=== PATIENT | male | born 1950 | race Caucasian/White ===

== ENCOUNTER 2019-02-25 08:58 | Emergency (ER) | payer OTHER ==
[~2019-02-25] VITALS: Ht 170.2 cm; Wt 92.5 kg
[2019-02-25 09:05] VITALS: BP 136/66
--- NOTE | 2019-02-25 09:11 | NUR ---
PT AMBULATED TO ER BED 10
--- NOTE | 2019-02-25 09:18 | NUR ---
ACCOMPANIED BY DAUGHTER--C/O LOWER BACK CONSTANT PAIN 04/01 X 3 DAYS PT WENT OVER TO [place] TO WASH UP MON MORNING AND FELL HURTING HIS BACK HE LEANED FOWARD TO WASH; THIS DESCRIBED BY PT. AMBULATORY WITH STEADY GAIT
[2019-02-25] MEDS ORDERED: MORPHINE SULFATE 4 MG/ML SYR IM ONE (10:00)
[2019-02-25] MEDS ORDERED: KETOROLAC 60 MG/2 ML VIAL IM ONE (10:00)
--- NOTE | 2019-02-25 10:00 | NUR ---
PT TO CT VIA WC
--- NOTE | 2019-02-25 10:20 | NUR ---
RETURNED FROM CT---MEDICATED WRITTEN WILL CONTINUE TO OBSERVE FOR PAIN CONTROL
[2019-02-25 12:46] VITALS: BP 134/67
--- NOTE | 2019-02-25 12:47 | NUR ---
Patient discharged with v/s stable. Written and verbal after care instructions given and explained. Patient alert, oriented and verbalized understanding of instructions. Ambulatory with steady gait. All questions addressed prior to discharge. ID band removed. Patient advised to follow up with PMD. Rx of voltaren XR given. Patient educated on indication of medication including possible reaction and side effects. Opportunity to ask questions provided and answered.
== END 2019-02-25 12:47 | disposition home or self-care (01) ==
LOC: MED 08:58
DX: M54.5 Low back pain (principal); Z88.0 Allergy status to penicillin; W01.0XXA Fall on same level from slipping, tripping and stumbling without subsequent striking against object, initial encounter; Y93.89 Activity, other specified; Y92.89 Other specified places as the place of occurrence of the external cause; Y99.8 Other external cause status
CPT/HCPCS: 72131; 96372; 99284; J1885; J2270